=== PATIENT | female | born 1960 | race Caucasian/White ===

== ENCOUNTER 2021-02-22 13:23 | Emergency (ER) | payer MEDICAID ==
[2021-02-22] MEDS ORDERED: Ibuprofen 600 MG Tab PO ONE (16:24)
--- NOTE | 2021-02-22 16:51 | EDM.PDOC ---
ED HPI GENERAL MEDICAL PROBLEM - General Chief Complaint: Lower Extremity Injury/Pain Stated Complaint: ROLLED LT ANKLE Time Seen by Provider: 02/22/21 16:11 Source of Information: Reports: Patient History Limitations: Reports: No Limitations - History of Present Illness INITIAL COMMENTS - FREE TEXT/NARRATIVE: 60 you female that fell this afternoon twisting her left ankle. She was holding onto her daughters dog and the dog pulled her forward causing her to fall. She was unable to walk after the injury. generally she is very healthy. - Related Data Allergies Allergy/AdvReac Type Severity Reaction Status Date / Time No Known Allergies Allergy Verified 02/22/21 16:10 Home Meds: Home Meds Losartan [Cozaar] 50 mg PO DAILY 02/22/21 [History] atorvaSTATin Calcium [Lipitor] 10 mg PO DAILY 02/22/21 [History] hydroCHLOROthiazide [Hydrochlorothiazide] 25 mg PO DAILY 02/22/21 [History] Past Medical History HEENT History: Reports: Impaired Vision Cardiovascular History: Reports: High Cholesterol Genitourinary History: Reports: None [facility] History: Reports: Musculoskeletal History: Reports: Arthritis Endocrine/Metabolic History: Reports: Obesity/BMI 30+ - Infectious Disease History Infectious Disease History: Reports: Chicken Pox, Shingles - Past Surgical History Head Surgeries/Procedures: Reports: None HEENT Surgical History: Reports: Cataract Surgery Cardiovascular Surgical History: Reports: None Female Surgical History: Reports: Hysterectomy Endocrine Surgical History: Reports: None Musculoskeletal Surgical History: Reports: None Dermatological Surgical History: Reports: None Social & Family History - Tobacco Use Tobacco Use Status *Q: Former Tobacco User Used Tobacco, but Quit: Yes Month/Year Tobacco Last Used: 1999 - Caffeine Use Caffeine Use: Reports: Soda - Recreational Drug Use Recreational Drug Use: No Review of Systems - Review of Systems Review Of Systems: See Below Constitutional: Denies: Chills, Fever Respiratory: Denies: Shortness of Breath, Wheezing Cardiovascular: Denies: Chest Pain GI/Abdominal: Denies: Abdominal Pain Musculoskeletal: Reports: Joint Pain Skin: Denies: Rash ED EXAM, GENERAL - Physical Exam Exam: See Below Exam Limited By: No Limitations General Appearance: Alert, WD/WN, No Apparent Distress Respiratory/Chest: No Respiratory Distress Extremities: Joint Swelling (moderate edema to left ankle ecchymotic, CMS distal to injury intact) Course - Vital Signs Last Recorded V/S: Last Vital Signs Temp 36.7 C 02/22/21 16:19 Pulse 79 02/22/21 16:19 Resp 16 02/22/21 16:19 BP 176/70 H 02/22/21 16:19 Pulse Ox 99 02/22/21 16:19 - Orders/Labs/Meds Orders: Active Orders 24 hr Category Date Time Status Ankle Min 3V Lt [CR] Stat Exams 02/22/21 16:25 Taken Meds: Medications Discontinued Medications Generic Name Dose Route Start Last Admin Trade Name Dnei PRN Reason Stop Dose Admin Ibuprofen 600 mg 02/22/21 16:24 02/22/21 16:29 Ibuprofen 600 Mg Tab PO 02/22/21 16:25 600 mg ONETIME ONE Administration - Re-Assessments/Exams Free Text/Narrative Re-Assessment/Exam: 02/22/21 16:51 ankle x-ray no acute osseous injury, moderate edema note. air splint applied and crutches with weight bearing as tolerated. Follow-up with primary care or orthopedics end of next week Departure - Departure Time of Disposition: 16:53 Disposition: Home, Self-Care 01 Condition: Good Clinical Impression: Left ankle sprain Qualifiers: Encounter type: initial encounter Involved ligament of ankle: unspecified ligament Qualified Code(s): S93.402A - Sprain of unspecified ligament of left ankle, initial encounter - Discharge Information *PRESCRIPTION DRUG MONITORING PROGRAM REVIEWED*: Not Applicable *COPY OF PRESCRIPTION DRUG MONITORING REPORT IN PATIENT PAUL: Not Applicable Instructions: Ankle Sprain, [id number] Referrals: PCP,None [Primary Care Provider] - Additional Instructions: no fractures noted on x-ray splint until follow-up visit at the end of next week you can follow-up with your primary care provider of orthopedics ice as much as possible over the next 3 days elevate ibuprofen 400-600 mg every 6 hours as needed weight bearing as tolerated Sepsis Event Note (ED) - Evaluation Sepsis Screening Result: No Definite Risk - Focused Exam Vital Signs: Vital Signs Temp Pulse Resp BP Pulse Ox 02/22/21 16:19 36.7 C 79 16 176/70 H 99 02/22/21 16:07 36.7 C 79 16 176/70 H 99 - My Orders Last 24 Hours: My Active Orders 02/22/21 16:25 Ankle Min 3V Lt [CR] Stat - Assessment/Plan Last 24 Hours: My Active Orders 02/22/21 16:25 Ankle Min 3V Lt [CR] Stat
--- NOTE | 2021-02-24 10:43 | CR ---
Ankle Min 3V Lt CLINICAL HISTORY: Trauma FINDINGS: The soft tissues are prominent circumferentially. There is flattening of Boehler's angle of the calcaneus. Fracture line through the mid calcaneus is suspected. Impression: There is some flattening of Boehler's angle of the calcaneus with a possible fracture line through the mid calcaneus. Dedicated calcaneal study recommended. Emergency room provider was notified by phone at the time of this dictation at 10:40 AM
== END 2021-02-22 17:05 | disposition home or self-care (01) ==
LOC: JP.ED 13:23
DX: S93.402A Sprain of unspecified ligament of left ankle, initial encounter (principal); R60.0 Localized edema; E66.9 Obesity, unspecified; Z68.30 Body mass index [BMI] 30.0-30.9, adult; E78.00 Pure hypercholesterolemia, unspecified; Z87.891 Personal history of nicotine dependence; Z79.899 Other long term (current) drug therapy; X50.1XXA Overexertion from prolonged static or awkward postures, initial encounter
CPT/HCPCS: 73610; 99283; A9270